=== PATIENT | female | born 1955 | race Caucasian/White ===

== ENCOUNTER 2016-05-09 18:34 | Emergency (ER) | payer MEDICARE, OTHER ==
[2016-05-09 19:49] LABS: BASOPHIL 0.6 % (0-2); HCT 38.4 % (37.0-47.0); LYMPHOCYTE 12.5 % (15-48); MCHC 31.3 g/dL (32.0-36.0); MCV 89.7 fL (78.0-100.0); MPV 11.4 fL (6.0-9.5); NEUTROPHIL 76.9 % (41-80); PLT 206 K/uL (150-400); RBC 4.28 M/uL (4.20-5.40); RDW 15.1 % (11.5-14.0); WBC 6.9 K/uL (4.0-10.5)
[2016-05-09 19:59] LABS: INR 1.01 (0.9-1.2); PROTHROMBIN TIME 12.9 SECONDS (11.7-14.0); PTT 29.3 SECONDS (23.2-31.4)
[2016-05-09 20:06] LABS: ALBUMIN 4.4 g/dL (3.5-5.0); BILIRUBIN - TOTAL 0.3 mg/dL (0.1-1.0); GLOBULIN (CALCULATION) 2.5 g/dL (2.2-4.2); POTASSIUM 3.9 mmol/L (3.5-5.1); TOTAL PROTEIN 6.9 g/dL (6.4-8.3)
[2016-05-09 20:08] LABS: MYOGLOBIN 121 ng/mL (26-65); TROPONIN T < 0.010 ng/mL
[2016-05-09 20:10] LABS: CKMB 13.78 ng/mL (0.97-4.94)
[2016-05-09 20:36] LABS: BILIRUBIN NEGATIVE (NEGATIVE); BLOOD NEGATIVE Ery/uL (NEGATIVE); CLARITY CLEAR (CLEAR); COLOR STRAW (YELLOW); GLUCOSE (U) NORMAL (NORMAL); KETONE (U) NEGATIVE (NEGATIVE); LEUKOCYTES NEGATIVE Leu/uL (NEGATIVE); NITRITE NEGATIVE (NEGATIVE); PROTEIN NEGATIVE (NEGATIVE); SPECIFIC GRAVITY <=1.005 (1.001-1.030); UROBILINOGEN 0.2 mg/dL (0.2-1.0)
[2016-05-09 20:47] LABS: AMPHETAMINES NEGATIVE (NEGATIVE); BARBITURATES NEGATIVE (NEGATIVE); BENZODIAZEPINES NEGATIVE (NEGATIVE); COCAINE NEGATIVE (NEGATIVE); MARIJUANA (THC) NEGATIVE (NEGATIVE); METHADONE NEGATIVE (NEGATIVE); TRICYCLIC ANTIDEPRESSANT NEGATIVE (NEGATIVE)
== END 2016-05-09 23:41 | disposition other institution (70) ==
LOC: FER 18:34
PROVIDERS: Emergency Medicine
DX: G40.909 Epilepsy, unspecified, not intractable, without status epilepticus (principal); R51 Headache; M54.9 Dorsalgia, unspecified; G89.29 Other chronic pain
CPT/HCPCS: 36415; 70450; 71010; 80053; 80061; 80305; 81003; 82550; 82553; 83874; 84484; 85025; 85610; 85730; 93005; G0480; J1953

== ENCOUNTER → 2020-04-10 | Day surgery (SDC) | payer MEDICARE, SELFPAY ==
[~2020-04-10] MED LIST: EFFEXOR XR75 MG PO; FLEXERIL10 MG PO; FOSAMAX70 MG PO; GABAPENTIN600 MG PO; LOTENSIN 10MG T10 MG PO; NORCO 5-325 TA1 EACH PO; ONDANSETRON ODT8 MG PO; PHENERGAN25 M1 PO; PROTONIX 40MG T40 MG PO; TOPAMAX50 MG PO; TOPROL XL 25MG25 MG PO; VICODIN 10/3251 EACH PO; VIMPAT100 MG PO
[2020-04-10 08:02] LABS: HCT 36.2 % (37.0-47.0); HGB 11.4 g/dl (12.5-16.0); MCH 30.2 pg (25.0-31.0); MCHC 31.5 g/dL (32.0-36.0); MPV 11.6 fL (6.0-9.5); RBC 3.77 M/uL (4.20-5.40); RDW 13.2 % (11.5-14.0)
[2020-04-10 09:28] LABS: ALBUMIN 3.5 g/dL (3.4-5.0); BILIRUBIN - TOTAL 0.5 mg/dL (0.2-1.0); BUN/CREAT RATIO (CALC) 20.3 RATIO; CREATININE 0.69 mg/dL (0.51-0.95); GLOBULIN (CALCULATION) 2.5 g/dL; POTASSIUM 4.2 mmol/L (3.5-5.1)
== END | disposition home or self-care (01) ==
LOC: FAS 07:00
PROVIDERS: Surgery
DX: K41.30 Unilateral femoral hernia, with obstruction, without gangrene, not specified as recurrent (principal); K29.60 Other gastritis without bleeding; K21.9 Gastro-esophageal reflux disease without esophagitis; D50.8 Other iron deficiency anemias; E78.70 Disorder of bile acid and cholesterol metabolism, unspecified; J30.9 Allergic rhinitis, unspecified; M81.0 Age-related osteoporosis without current pathological fracture; M19.90 Unspecified osteoarthritis, unspecified site; I10 Essential (primary) hypertension; G43.909 Migraine, unspecified, not intractable, without status migrainosus; Z88.8 Allergy status to other drugs, medicaments and biological substances; Z86.73 Personal history of transient ischemic attack (TIA), and cerebral infarction without residual deficits; Z72.0 Tobacco use; Z98.1 Arthrodesis status; Z98.890 Other specified postprocedural states; Z98.51 Tubal ligation status; Z86.69 Personal history of other diseases of the nervous system and sense organs
CPT/HCPCS: 36415; 80053; C1781; J0690; J1100; J1170; J1885; J2250; J2405; J2704; J2710; J3010; J7120